=== PATIENT | male | born 1970 | race Caucasian/White ===

== ENCOUNTER 2018-03-29 01:17 | Emergency (ER) | payer OTHER ==
[~2018-03-29] VITALS: Ht 180.3 cm; Wt 83.9 kg
[2018-03-29] MEDS ORDERED: FLEXERIL PO (02:10)
[2018-03-29] MEDS ORDERED: MEDROLDOSEPACK PO (02:10)
[2018-03-29] MEDS ORDERED: NORCO 7.5-3251 EACH PO (02:10)
[2018-03-29 02:44] VITALS: BP 155/106
== END 2018-03-29 02:44 | disposition home or self-care (01) ==
LOC: M.ERS 01:17
DX: M25.512 Pain in left shoulder (principal)